=== PATIENT | male | born 1955 | race Hispanic/Latino ===

== ENCOUNTER 2019-07-25 12:14 | Emergency (ER) | payer MEDICARE ==
[2019-07-25 15:04] LABS: Troponin I 0.325 ng/mL (< 0.028)
== END 2019-07-25 15:21 | disposition home or self-care (01) ==
LOC: ERS 12:14
DX: R07.89 Other chest pain (principal); I12.0 Hypertensive chronic kidney disease with stage 5 chronic kidney disease or end stage renal disease; N18.6 End stage renal disease; E11.22 Type 2 diabetes mellitus with diabetic chronic kidney disease; I25.10 Atherosclerotic heart disease of native coronary artery without angina pectoris; Z79.82 Long term (current) use of aspirin; Z79.899 Other long term (current) drug therapy
CPT/HCPCS: 36415; 93005